=== PATIENT | female | born 1955 | race Caucasian/White ===

== ENCOUNTER 2021-01-01 21:31 | Emergency (ER) | payer OTHER, MEDICARE ==
[~2021-01-01 21:31] MED LIST: ALLERGY10 M1 PO; BAYER CHEWABLE81 MG PO; CELEXA10 MG PO; FERROUS SULFAT325 M2 PO; LOFIBRA160 MG PO; METOPROLOL 1212.5 MG PO; PRAVACHOL40 MG PO; PRILOSEC40 MG PO
[2021-01-02 01:04] LABS: BASOPHIL 0.9 % (0-2); EOSINOPHIL 3.7 % (0-7); HCT 39.4 % (37.0-47.0); HGB 13.7 g/dl (12.5-16.0); LYMPHOCYTE 32.9 % (15-48); MCHC 34.8 g/dL (32.0-36.0); MCV 92.1 fL (78.0-100.0); MONOCYTE 6.9 % (0-12); MPV 10.1 fL (6.0-9.5); NEUTROPHIL 55.2 % (41-80); NRBC 0; PLT 247 K/uL (150-400); RBC 4.28 M/uL (4.20-5.40); RDW 13.2 % (11.5-14.0); WBC 10.1 K/uL (4.0-10.5)
[2021-01-02 01:22] LABS: ALBUMIN 3.7 g/dL (3.4-5.0); BILIRUBIN - TOTAL 0.6 mg/dL (0.2-1.0); BUN/CREAT RATIO (CALC) 9.3 RATIO; CREATININE 1.51 mg/dL (0.51-0.95); GLOBULIN (CALCULATION) 3.2 g/dL; POTASSIUM 3.1 mmol/L (3.5-5.1); TOTAL PROTEIN 6.9 g/dL (6.4-8.2)
[2021-01-02 01:25] LABS: INR 1.04 (0.9-1.2); PROTHROMBIN TIME 12.9 SECONDS (11.4-13.6); PTT 25.5 SECONDS (22.2-34.7)
[2021-01-02 01:26] LABS: D-DIMER 0.78 ug/mLFEU (0.00-0.41)
== END 2021-01-02 02:10 | disposition home or self-care (01) ==
LOC: FER 21:31
PROVIDERS: Emergency Medicine Emergency Medical Services
DX: S90.01XA Contusion of right ankle, initial encounter (principal); X58.XXXA Exposure to other specified factors, initial encounter
CPT/HCPCS: 36415; 73610; 80053; 85025; 85379; 85610; 85730; 93971

== ENCOUNTER 2021-05-06 14:35 | Emergency (ER) | payer OTHER, MEDICARE ==
[~2021-05-06] VITALS: Ht 170.2 cm; Wt 88.9 kg
[2021-05-06 15:54] LABS: BASOPHIL 0.9 % (0-2); EOSINOPHIL 2.6 % (0-7); HGB 15.8 g/dl (12.5-16.0); LYMPHOCYTE 18.7 % (15-48); MCH 31.7 pg (25.0-31.0); MCHC 33.6 g/dL (32.0-36.0); MCV 94.4 fL (78.0-100.0); MONOCYTE 6.4 % (0-12); MPV 10.8 fL (6.0-9.5); NEUTROPHIL 70.7 % (41-80); NRBC 0; PLT 249 K/uL (150-400); RBC 4.98 M/uL (4.20-5.40); RDW 12.9 % (11.5-14.0); WBC 10.2 K/uL (4.0-10.5)
[2021-05-06 16:00] LABS: INR 0.96 (0.9-1.2); PROTHROMBIN TIME 12.2 SECONDS (11.8-13.4); PTT 24.1 SECONDS (24.4-34.7)
[2021-05-06 16:08] LABS: BILIRUBIN - TOTAL 0.5 mg/dL (0.2-1.0); BUN/CREAT RATIO (CALC) 14.1 RATIO; CREATININE 1.42 mg/dL (0.51-0.95); GLOBULIN (CALCULATION) 3.2 g/dL; MAGNESIUM 2.2 mg/dL (1.8-2.4); POTASSIUM 3.7 mmol/L (3.5-5.1); TOTAL PROTEIN 7.2 g/dL (6.4-8.2)
[2021-05-06 16:15] LABS: BILIRUBIN NEGATIVE (NEGATIVE); BLOOD TRACE-INTACT Ery/uL (NEGATIVE); CLARITY CLEAR (CLEAR); COLOR YELLOW (YELLOW); GLUCOSE (U) NORMAL (NORMAL); LEUKOCYTES NEGATIVE Leu/uL (NEGATIVE); NITRITE NEGATIVE (NEGATIVE); PROTEIN NEGATIVE (NEGATIVE); SPECIFIC GRAVITY 1.015 (1.001-1.030); UROBILINOGEN 0.2 mg/dL (0.2-1.0); pH 5.5 (5.0-9.0)
[2021-05-06 16:24] LABS: BACTERIA TRACE; SQUAMOUS EPITHELIAL CELLS RARE; URINARY RBC RARE
[2021-05-06] MEDS ORDERED: ANTIVERT25 MG PO (16:51)
== END 2021-05-06 17:00 | disposition home or self-care (01) ==
LOC: FER 14:35
PROVIDERS: Emergency Medicine
DX: R42 Dizziness and giddiness (principal); G30.9 Alzheimer's disease, unspecified; F02.80 Dementia in other diseases classified elsewhere, unspecified severity, without behavioral disturbance, psychotic disturbance, mood disturbance, and anxiety
CPT/HCPCS: 36415; 70450; 80053; 81001; 83735; 84484; 85025; 85610; 85730; 93005

== ENCOUNTER 2021-07-29 19:25 | Emergency (ER) | payer OTHER, MEDICARE ==
[~2021-07-29 19:25] MED LIST changes: +ANTIVERT25 MG PO
[2021-07-29 20:37] LABS: CORONAVIRUS 2019 SARS-COV-2 NEGATIVE (NEGATIVE); INFLUENZA A NAA NEGATIVE (NEGATIVE)
== END 2021-07-29 19:49 | disposition left against medical advice (07) ==
LOC: FER 19:25
PROVIDERS: Emergency Medicine
DX: R06.02 Shortness of breath (principal); R05.9 Cough, unspecified; Z53.8 Procedure and treatment not carried out for other reasons; Z20.822 Contact with and (suspected) exposure to COVID-19
CPT/HCPCS: 99281; U0002

== ENCOUNTER 2021-08-14 09:03 | Emergency (ER) | payer OTHER, MEDICARE ==
[2021-08-14 11:08] LABS: BASOPHIL 1.5 % (0-2); EOSINOPHIL 5.5 % (0-7); HCT 42.3 % (37.0-47.0); LYMPHOCYTE 12.7 % (15-48); MCH 30.8 pg (25.0-31.0); MCHC 33.1 g/dL (32.0-36.0); MONOCYTE 6.2 % (0-12); MPV 10.2 fL (6.0-9.5); NEUTROPHIL 69.3 % (41-80); NRBC 0; PLT 581 K/uL (150-400); RBC 4.55 M/uL (4.20-5.40); RDW 12.7 % (11.5-14.0); WBC 13.2 K/uL (4.0-10.5)
[2021-08-14 11:42] LABS: ALBUMIN 2.7 g/dL (3.4-5.0); BILIRUBIN - TOTAL 0.4 mg/dL (0.2-1.0); BUN/CREAT RATIO (CALC) 12.2 RATIO; CREATININE 1.15 mg/dL (0.51-0.95); GLOBULIN (CALCULATION) 4.5 g/dL; MAGNESIUM 2.4 mg/dL (1.8-2.4); POTASSIUM 4.2 mmol/L (3.5-5.1); TOTAL PROTEIN 7.2 g/dL (6.4-8.2)
[2021-08-14 11:47] LABS: LACTIC ACID 1.3 mmol/L (0.4-1.9); PTT 32.6 SECONDS (24.4-34.7)
[2021-08-14 11:49] LABS: INR 1.56 (0.9-1.2); PROTHROMBIN TIME 17.9 SECONDS (11.8-13.4)
[2021-08-14 11:58] LABS: CORONAVIRUS 2019 SARS-COV-2 NEGATIVE (NEGATIVE); INFLUENZA A NAA NEGATIVE (NEGATIVE)
[2021-08-14 14:31] LABS: BILIRUBIN 1+ mg/dL (NEGATIVE); BLOOD NEGATIVE Ery/uL (NEGATIVE); CLARITY CLEAR (CLEAR); COLOR YELLOW (YELLOW); GLUCOSE (U) NORMAL (NORMAL); LEUKOCYTES NEGATIVE Leu/uL (NEGATIVE); NITRITE NEGATIVE (NEGATIVE); PROTEIN TRACE (LOW) mg/dL (NEGATIVE); SPECIFIC GRAVITY 1.025 (1.001-1.030); UROBILINOGEN 0.2 mg/dL (0.2-1.0); pH 5.5 (5.0-9.0)
[2021-08-14 14:57] LABS: URINARY WBC RARE
[2021-08-14 15:00] LABS: BACTERIA 2+; SQUAMOUS EPITHELIAL CELLS 20-50
== END 2021-08-14 16:05 | disposition home or self-care (01) ==
LOC: FER 09:03
PROVIDERS: Emergency Medicine
DX: J90 Pleural effusion, not elsewhere classified (principal); J98.11 Atelectasis; F03.90 Unspecified dementia, unspecified severity, without behavioral disturbance, psychotic disturbance, mood disturbance, and anxiety; Z20.822 Contact with and (suspected) exposure to COVID-19; Z86.711 Personal history of pulmonary embolism; Z79.01 Long term (current) use of anticoagulants
CPT/HCPCS: 36415; 70450; 71250; 80053; 81001; 83605; 83735; 84145; 84484; 85025; 85610; 85730; 87040; 87088; 93005; U0002